=== PATIENT | male | born 1955 | race Caucasian/White ===

== ENCOUNTER 2017-09-20 09:03 | Emergency (ER) | payer BC ==
[~2017-09-20] VITALS: Ht 177.8 cm; Wt 95.0 kg
[2017-09-20 09:05] VITALS: BP 144/79
[2017-09-20] MEDS ORDERED: LEVO137T3 PO (09:31)
[2017-09-20] MEDS ORDERED: ALLO100T30 PO (09:31)
[2017-09-20] MEDS ORDERED: LIDOCAINE 1%, 20ML ONE (09:53)
[2017-09-20] MEDS ORDERED: KETOROLAC 30 MG/1 ML IVPush ONE (10:00)
[2017-09-20] MEDS ORDERED: HYDROmorphone 1 MG/ML, 1ML IVPush PRN (10:00)
[2017-09-20] MEDS ORDERED: SODIUM CHLORIDE FLUSH 10ML SYR IVF ONE (10:00)
[2017-09-20] MEDS ORDERED: LIDOCAINE 1%, 20ML SQ ONE (10:00)
[2017-09-20] MEDS ORDERED: HYDROmorphone 2 MG/ML, 1ML ONE (10:08)
[2017-09-20] MEDS ORDERED: KETOROLAC 30 MG/1 ML ONE (10:09)
[2017-09-20] MEDS ORDERED: HYDROmorphone 1 MG/ML, 1ML IM PRN (10:30)
[2017-09-20] MEDS ORDERED: KETOROLAC 30 MG/1 ML IM ONE (10:30)
== END 2017-09-20 11:32 | disposition home or self-care (01) ==
LOC: ED 09:44
DX: M25.462 Effusion, left knee (principal); E03.9 Hypothyroidism, unspecified; G89.29 Other chronic pain
CPT/HCPCS: 20610; 96372; 99284; J1170; J1885